=== PATIENT | female | born 2000 | race Caucasian/White ===

== ENCOUNTER 2019-11-21 20:00 | Emergency (ER) | payer SELFPAY ==
[~2019-11-21] VITALS: Ht 170.2 cm; Wt 94.3 kg
[2019-11-21 20:20] VITALS: BP 142/73
--- NOTE | 2019-11-21 20:23 | NUR ---
TO LOBBY A/ W BED AMBULATORY
--- NOTE | 2019-11-21 20:51 | NUR ---
PT AMBULATED TO ER BED 08
--- NOTE | 2019-11-21 20:55 | NUR ---
PT C/O ABD X4 QUADRANTS; NO TENDERNESS ON PALPATION OR REBOUND TENDERNESS. 8/10 "MUSCLE TEARING, CONTRACTION" QUALITY OF PAIN X3 DAYS. INTERMITTENT NAUSEA NO VOMITING OR DIARRHEA; LAST BM TODAY. NO CHANGE IN BOWEL MOVEMENTS. DECREASED APPETITE X3 DAYS; REPORTS FEELING SHAKY IN HER HANDS. HAD BLOOD CLOT THIS AM WHEN WIPING AFTER URINATION. LMP 9 MONTHS AGO ON CONTROL. DENIES HAVING CLOTS IN PAD; ONLY WHEN WIPING. DENIES CHANGES IN URINATION. PT RESTING ON SIDE IN GURNEY, RR EVEN AND UNLABORED, VSS.
--- NOTE | 2019-11-21 21:50 | NUR ---
Dr. Funez examining patient.
[2019-11-21 21:56] LABS: APPEARANCE,URINE SL CLOUDY (CLEAR); BILIRUBIN,URINE NEGATIVE (NEGATIVE); BLOOD, URINE 3+ (NEGATIVE); COLOR,URINE YELLOW (YELLOW); LEUKOCYTE ESTERASE ,URINE NEGATIVE (NEGATIVE); NITRITE, URINE NEGATIVE (NEGATIVE); UGLUCOSE NEGATIVE (NEGATIVE)
[2019-11-21 22:20] VITALS: BP 113/78
[2019-11-21 22:34] LABS: RBC,URINE 11-20 (MOD) /HPF (0-5)
[2019-11-21] MEDS ORDERED: NACL 0.9% 1,000 ML IV ONE (22:45)
[2019-11-21] MEDS ORDERED: KETOROLAC 30 MG/ML VIAL IVP ONE (22:45)
--- NOTE | 2019-11-21 22:55 | NUR ---
URINE + INFECTION. IV STARTED. TORADOL GIVEN FOR ABDOMINAL PAIN. IV ABX AND NS BOLUS STARTED. WILL CONTINUE TO MONITOR.
[2019-11-21] MEDS ORDERED: cefTRIAXone 1,000 MG VIAL ONE (23:03)
--- NOTE | 2019-11-21 23:40 | NUR ---
Patient discharged with v/s stable. Written and verbal after care instructions given and explained. Patient alert, oriented and verbalized understanding of instructions. Ambulatory with steady gait. All questions addressed prior to discharge. ID band removed. Patient advised to follow up with PMD. Rx of PYRIDIUM, MACROBID given. Patient educated on indication of medication including possible reaction and side effects. Opportunity to ask questions provided and answered.
--- NOTE | 2019-11-21 23:41 | NUR ---
IVF BOLUS AND ABX DONE INFUSING. PAIN IMPROVED. IV REMOVED. DR SHORT DISCHARGED PT.
== END 2019-11-21 23:40 | disposition home or self-care (01) ==
LOC: MED 20:00
DX: N39.0 Urinary tract infection, site not specified (principal); F12.10 Cannabis abuse, uncomplicated; Z88.5 Allergy status to narcotic agent; Z88.6 Allergy status to analgesic agent
CPT/HCPCS: 81001; 87086; 96365; 96375; 99284; J0696; J1885; J7030

== ENCOUNTER 2020-03-11 09:46 | Emergency (ER) | payer SELFPAY ==
[~2020-03-11] VITALS: Ht 170.2 cm; Wt 94.3 kg
[2020-03-11 09:57] VITALS: BP 118/63
--- NOTE | 2020-03-11 09:58 | NUR ---
Patient ambulated to bed 12. RN evaluating patient at bedside.
--- NOTE | 2020-03-11 10:01 | NUR ---
20 Y/O F C/C NVD X 1 DAY. PER PT "BINGE-DRINKING" SINCE YESTERDAY DUE TO REPUBLICAN. PT UNABLE TO SLEEP ALL NIGHT, VOMITING >10X, DIARRHEA TWO EPISODES. UNABLE TO HOLD FLUIDS/FOOD. DENIES HEMATEMESIS, HEMOPTYSIS OR HEMATOCHEZIA. PT PRESENTS A/OX4. BS WNL. NKA. NO HX. NO RX. SIDE RAIL X1.
[2020-03-11] MEDS ORDERED: ONDANSETRON 4 MG/2 ML VIAL IVP ONE (10:10)
[2020-03-11] MEDS ORDERED: NACL 0.9% 2,000 ML IV ONE (10:10)
[2020-03-11] MEDS ORDERED: DICYCLOMINE HCL LIQUID 20 MG, ALUMINUM HYD/MAG/SIMETHICONE 30 ML, LIDOCAINE VISCOUS 2% ... PO ONE ×3 (11:10)
[2020-03-11] MEDS ORDERED: LIDOCAINE VISCOUS 2% 20 ML UDC ONE (11:12)
[2020-03-11] MEDS ORDERED: ALUMINUM HYD/MAG/SIMETHICONE 30 ML UDC ONE (11:13)
[2020-03-11] MEDS ORDERED: DICYCLOMINE HCL LIQUID 10 MG/5 ML UDC ONE (11:13)
--- NOTE | 2020-03-11 11:35 | NUR ---
PT RESTING IN BED, SIDE RAIL X1
[2020-03-11 11:58] VITALS: BP 118/63
--- NOTE | 2020-03-11 11:58 | NUR ---
Patient discharged with v/s stable. Written and verbal after care instructions given and explained. Patient verbalized understanding. Ambulatory with steady gait. All questions addressed prior to discharge. Advised to follow up with PMD.
== END 2020-03-11 11:58 | disposition home or self-care (01) ==
LOC: MED 09:46
DX: R11.2 Nausea with vomiting, unspecified (principal); R10.10 Upper abdominal pain, unspecified; F10.120 Alcohol abuse with intoxication, uncomplicated; Z88.5 Allergy status to narcotic agent; Z88.1 Allergy status to other antibiotic agents
CPT/HCPCS: 81025; 96361; 96374; 99283; J2405; J7030

== ENCOUNTER 2020-07-24 14:29 | Emergency (ER) | payer SELFPAY ==
[~2020-07-24] VITALS: Ht 167.6 cm; Wt 99.8 kg
[2020-07-24 14:41] VITALS: BP 137/66
--- NOTE | 2020-07-24 14:55 | NUR ---
PATIENT PRESENTS TO ED WITH lower back pain . PT STATES pain is 9/10, has been for 1 year and it is getting worse, pt took tylenol and ibuprofen for the pain but it is not relieved . DENIES N/V/D; SKIN IS PINK/WARM/DRY; AAOX4 WITH EVEN AND STEADY GAIT; LUNGS CLEAR BL; HR EVEN AND REGULAR; PT DENIES ANY FEVER, CP, SOB, OR COUGH AT THIS TIME; PATIENT STATES PAIN OF 9/10 AT THIS TIME; VSS; PATIENT POSITIONED FOR COMFORT; HOB ELEVATED; BEDRAILS UP X2; BED DOWN. ER MD MADE AWARE OF PT STATUS.
[2020-07-24 16:13] VITALS: BP 137/66
--- NOTE | 2020-07-24 16:14 | NUR ---
Patient discharged with v/s stable. Written and verbal after care instructions given and explained. Patient alert, oriented and verbalized understanding of instructions. Ambulatory with steady gait. All questions addressed prior to discharge. ID band removed. Patient advised to follow up with PMD. Rx of IBUPROFEN, ROBAXIN, TRAMADOL given. Patient educated on indication of medication including possible reaction and side effects. Opportunity to ask questions provided and answered.
== END 2020-07-24 16:14 | disposition home or self-care (01) ==
LOC: MED 14:29
DX: M54.5 Low back pain (principal); Z88.5 Allergy status to narcotic agent; Z88.6 Allergy status to analgesic agent
CPT/HCPCS: 72072; 81025; 99283

== ENCOUNTER 2020-10-05 09:29 | Emergency (ER) | payer SELFPAY ==
[~2020-10-05] VITALS: Ht 167.6 cm; Wt 101.6 kg
[2020-10-05 09:33] VITALS: BP 130/67
--- NOTE | 2020-10-05 09:38 | NUR ---
20/F BIB SELF C/O NAUSEA, R FLANK PAINX 2 DAYS. DENIES DYSURIA. PMH:DENIES
--- NOTE | 2020-10-05 13:22 | NUR ---
PATIENT LEFT WITHOUT BEING SEEN BY DR. MORRISON. NO FURTHER CARE PROVIDED FOR PATIENT.
== END 2020-10-05 13:22 | disposition left against medical advice (07) ==
LOC: MED 09:29
DX: R10.9 Unspecified abdominal pain (principal); Z53.21 Procedure and treatment not carried out due to patient leaving prior to being seen by health care provider

== ENCOUNTER 2021-02-20 15:54 | Emergency (ER) | payer SELFPAY ==
[~2021-02-20] VITALS: Ht 170.2 cm; Wt 104.8 kg
[2021-02-20 16:06] VITALS: BP 141/78
--- NOTE | 2021-02-20 16:09 | NUR ---
PT AMBULATED TO BED 6 WITH STEADY GAIT
--- NOTE | 2021-02-20 16:12 | NUR ---
20 Y/O FEMALE C/O RIGHT HAND LACERATION TODAY, VANITY MIRROR BROKE ON PATIENT'S HAND, BETWEEN THUMB AND POINTER FINGER. CONTROLLED BLEEDING, CAP REFILL <3 SECONDS, +2 RADIAL PULSES WITH FULL ROM AND SENSATION. PT RATES PAIN 5/10 THAT SHE DESCRIBES BURNING. PT DENIES TAKING ANYTHING FOR PAIN. PT A/O X4 WITH EVEN AND UNLABORED RESPIRATIONS. PT UNAWARE OF LAST TDAP VACCINES HX DENIES ALLERGIES:ACETAMINOPHEN, HYDROCODONE
--- NOTE | 2021-02-20 16:18 | NUR ---
MAURA WORKMAN AT BEDSIDE EVALUATING PT
[2021-02-20] MEDS ORDERED: BACITRACIN OINT 500 UNITS/GM PKT TP ONE (16:20)
[2021-02-20] MEDS ORDERED: LIDOCAINE MPF 1% 10 MG/ML VIAL INJ ONE ×2 (16:20)
--- NOTE | 2021-02-20 16:20 | NUR ---
PT WOUND SOAKED IN WARM WATER AND IRRIGATED
--- NOTE | 2021-02-20 16:25 | NUR ---
PT TAKEN TO RAD VIA W/C
--- NOTE | 2021-02-20 16:34 | NUR ---
PT BACK FROM RAD.
--- NOTE | 2021-02-20 17:04 | NUR ---
LAC TRAY SET UP AT BED SIDE
[2021-02-20] MEDS ORDERED: BACI1PAC6 TP ×2 (17:45→18:10)
[2021-02-20] MEDS ORDERED: IBUP-2213 PO (18:10)
--- NOTE | 2021-02-20 18:41 | NUR ---
APPLIED BACITRACIN TO PT LAC AND DRESSED WITH NON-ADHERENT AND WRAPPED WITH 3" GUAZE ROLL. RN NOTIFIED
[2021-02-20 18:42] VITALS: BP 141/78
--- NOTE | 2021-02-20 18:42 | NUR ---
Patient discharged with v/s stable. Written and verbal after care instructions given and explained. Patient alert, oriented and verbalized understanding of instructions. Ambulatory with steady gait. All questions addressed prior to discharge. ID band removed. Patient advised to follow up with PMD. Rx of Bacitracin and Ibuprofen given. Patient educated on indication of medication including possible reaction and side effects. Opportunity to ask questions provided and answered.
== END 2021-02-20 18:42 | disposition home or self-care (01) ==
LOC: MED 15:54
DX: S61.411A Laceration without foreign body of right hand, initial encounter (principal); Z88.5 Allergy status to narcotic agent; Z88.6 Allergy status to analgesic agent; Z79.899 Other long term (current) drug therapy; W25.XXXA Contact with sharp glass, initial encounter; Y93.89 Activity, other specified; Y92.89 Other specified places as the place of occurrence of the external cause; Y99.8 Other external cause status
CPT/HCPCS: 12002; 73130; 90471; 90715; 99283; J2001

== ENCOUNTER 2021-02-27 13:01 | Emergency (ER) | payer SELFPAY ==
[~2021-02-27] VITALS: Ht 170.2 cm; Wt 102.5 kg
[~2021-02-27 13:01] MED LIST: BACI1PAC6 TP; IBUP-2213 PO
[2021-02-27 13:06] VITALS: BP 144/72
--- NOTE | 2021-02-27 13:07 | NUR ---
Patient ambulated to bed 4. RN evaluating the patient at bedside.
--- NOTE | 2021-02-27 13:15 | NUR ---
20/F BIB SELF FOR SUTURE REMOVAL ON LEFT HAND WHICH WAS PLACED 7 DAYS AGO. UPON ASSESSMENT NO BLEEDING OR S/SX OF INFECTION NOTED. DENIES PMH ALLERGY: ACETAMINOPHEN, HYDROCODONE.
--- NOTE | 2021-02-27 13:17 | NUR ---
MAURA Benton is evaluating the patient at bedside.
[2021-02-27 13:26] VITALS: BP 144/72
--- NOTE | 2021-02-27 13:26 | NUR ---
Patient discharged with v/s stable. Written and verbal after care instructions given and explained regarding suture removal. Patient verbalized understanding. Ambulatory with steady gait. All questions addressed prior to discharge. Advised to follow up with PMD.
== END 2021-02-27 13:26 | disposition home or self-care (01) ==
LOC: MED 13:01
DX: S61.411D Laceration without foreign body of right hand, subsequent encounter (principal); Z88.5 Allergy status to narcotic agent; Z88.8 Allergy status to other drugs, medicaments and biological substances; Z79.899 Other long term (current) drug therapy; X58.XXXD Exposure to other specified factors, subsequent encounter
CPT/HCPCS: 81002; 81025; 96372; 99283

== ENCOUNTER 2021-12-22 08:30 | Emergency (ER) | payer SELFPAY ==
[~2021-12-22] VITALS: Ht 170.2 cm; Wt 98.0 kg
[2021-12-22 08:31] VITALS: BP 144/111
--- NOTE | 2021-12-22 08:40 | NUR ---
18G IV ESTABLISHED IN L AC
--- NOTE | 2021-12-22 08:45 | NUR ---
DR. AVALOS BEDSIDE EVALUATING PT
[2021-12-22] MEDS ORDERED: FAMOTIDINE 20 MG/2 ML VIAL IVP ONE (09:00)
[2021-12-22] MEDS ORDERED: ONDANSETRON 4 MG/2 ML VIAL IVP ONE (09:00)
[2021-12-22] MEDS ORDERED: NACL 0.9% 1,000 ML IV ONE (09:00)
[2021-12-22] MEDS ORDERED: DICYCLOMINE HCL LIQUID 20 MG, ALUMINUM HYD/MAG/SIMETHICONE 30 ML, LIDOCAINE VISCOUS 2% ... PO ONE ×3 (09:00)
--- NOTE | 2021-12-22 09:06 | NUR ---
BLOOD COLLECTED AND WALKED TO LAB. BLOOD HANDED TO SVEN
[2021-12-22] MEDS ORDERED: ALUMINUM HYD/MAG/SIMETHICONE 30 ML UDC ONE ×2 (09:07→09:08)
[2021-12-22] MEDS ORDERED: DICYCLOMINE HCL LIQUID 10 MG/5 ML UDC ONE (09:07)
--- NOTE | 2021-12-22 09:10 | NUR ---
PT PROVIDED WITH WARM BLANKET BEDSIDE
[2021-12-22 09:39] LABS: BASOPHILS % (AUTO) 0.5 % (0.0-2.0); EOSINOPHILS # (AUTO) 0.2 K/uL (0-0.4); HEMATOCRIT 42.2 % (36-48); HEMOGLOBIN 14.3 g/dL (12.0-16.0); LYMPHOCYTES # (AUTO) 0.7 K/uL (2.5-16.5); LYMPHOCYTES % (AUTO) 18.4 % (20.5-51.1); MEAN CORPUSCULAR HEMOGLOBIN 30 pg (27-31); MEAN CORPUSCULAR HGB CONC 34 g/dL (33-37); MEAN CORPUSCULAR VOLUME 89.1 fL (80-94); MONOCYTES # (AUTO) 0.4 K/uL (0.8-1.0); MONOCYTES % (AUTO) 10.3 % (1.7-9.3); NEUTROPHILS # (AUTO) 2.4 K/uL (1.8-7.7); NEUTROPHILS % (AUTO) 64.8 % (42.2-75.2); PLATELET COUNT (AUTO) 285 K/uL (140-450); RED BLOOD CELL COUNT(AUTO) 4.73 MIL/uL (4.20-5.40); RED CELL DISTRIBUTION WIDTH 13.3 % (11.6-13.7); WHITE BLOOD COUNT (AUTO) 3.7 K/uL (4.8-10.8)
--- NOTE | 2021-12-22 09:42 | NUR ---
URINE DIPPED AND SHOWN TO SHANTANU AVALOS.
[2021-12-22 09:47] LABS: APPEARANCE,URINE HAZY (CLEAR); BILIRUBIN,URINE NEGATIVE (NEGATIVE); BLOOD, URINE NEGATIVE (NEGATIVE); COLOR,URINE YELLOW (YELLOW); LEUKOCYTE ESTERASE ,URINE NEGATIVE (NEGATIVE); NITRITE, URINE NEGATIVE (NEGATIVE); UGLUCOSE NEGATIVE (NEGATIVE)
[2021-12-22 09:52] LABS: ALBUMIN 3.5 g/dL (3.4-5.0); ANION GAP 12.6 (8-16); CARBON DIOXIDE 26.5 mmol/L (21-32); CREATININE 0.8 mg/dL (0.6-1.3); POTASSIUM 4.1 mmol/L (3.5-5.1); TOTAL BILIRUBIN 0.5 mg/dL (0.0-1.0)
--- NOTE | 2021-12-22 09:54 | NUR ---
US TECH AT PT BEDSIDE.
--- NOTE | 2021-12-22 09:55 | NUR ---
21 Y/O FEMALE BIB SELF C/O ABDOMINAL PAIN ,NAUSEA AND VOMITING X 2 DAYS. PATIENT STATES PAIN IS RATED 9/10, SHARP AND CONSTANT TYPE OF PAIN. ABDOMEN IS TENDER TO PALPATION. PT DENIES DYSURIA, DIARRHEA. PT DENIES FEVER OR CHILLS. DENIES MEDICATION PRIOR TO ARRIVAL. BED LOCKED IN LOWEST POSITION. SIDE RAILS X1. PMH: DENIES MEDS: DENIES ALLERGY:ACETAMINOPHEN, HYDROCODONE
--- NOTE | 2021-12-22 09:56 | NUR ---
US AT PT BEDSIDE
[2021-12-22] MEDS ORDERED: NAPR-54 PO (10:56)
[2021-12-22 11:05] VITALS: BP 128/72
--- NOTE | 2021-12-22 11:05 | NUR ---
Patient discharged with v/s stable. Written and verbal after care instructions given FOR [employer] and explained. Patient alert, oriented and verbalized understanding of instructions. Ambulatory with steady gait. All questions addressed prior to discharge. ID band removed. Patient advised to follow up with PMD. Rx of NAPROXEN given. Patient educated on indication of medication including possible reaction and side effects. Opportunity to ask questions provided and answered.
== END 2021-12-22 11:05 | disposition home or self-care (01) ==
LOC: MED 08:30
DX: R10.13 Epigastric pain (principal); R10.11 Right upper quadrant pain; R11.2 Nausea with vomiting, unspecified; Z79.2 Long term (current) use of antibiotics; Z79.1 Long term (current) use of non-steroidal anti-inflammatories (NSAID); Z88.5 Allergy status to narcotic agent; Z88.8 Allergy status to other drugs, medicaments and biological substances
CPT/HCPCS: 36415; 76705; 80053; 81003; 81025; 82150; 83690; 84703; 85025; 96361; 96374; 96375; 99284; J2405; J3490; J7030; Q0092